=== PATIENT | male | born 1955 | race Caucasian/White ===

== ENCOUNTER 2017-01-02 10:09 | Inpatient (IN) | payer OTHER ==
--- NOTE | 2017-01-02 11:10 | US ---
ULTRASOUND EXAMINATION OF the right lower extremity WITH DOPPLER HISTORY: Pain FINDINGS: Examination of the right leg was performed from the groin to the calf region. The common femoral vei n is patent and compressible. There is a filling defect within the mid right femoral vein extending through the popliteal vein into the calf. This is noncompressible with no significant color Doppler flow. IMPRESSION: 1. Deep vein thrombosis extending from the mid femoral vein into the calf.
[2017-01-02 12:09] LABS: CHLORIDE,CL 108 mmol/L (98-110); SODIUM,NA 138 mmol/L (136-146)
[2017-01-02] MEDS ORDERED: Iopamidol 755 MG/ML 500 ML Multipack Bottle IVPUSH STA (13:13)
--- NOTE | 2017-01-02 13:55 | CT ---
EXAMINATION: CTA chest HISTORY: Evaluate for PE COMPARISON: None TECHNIQUE: Axial CT images obtained through the chest following the administration of 50 mL of Isovu e-370 in the right arm. Coronal and sagittal reconstructions obtained. FINDINGS: There is mild dependent atelectasis bilaterally. No focal consolidation noted. No pleural effusion or pneumothorax. Heart is normal in size without a pericardial effusion. Thoracic aorta is normal in caliber. There are several small segmental pulmonary emboli noted bilaterally. Nonpatholog ically enlarged mediastinal and hilar lymph nodes noted. No axillary lymphadenopathy. Mild coronary artery calcifications are present. There is a 4 to 5 mm nodular area within the left lung base, this averages above 120 Hounsfield units and likely represents a calcified granuloma. The visualized images of the upper abdomen appear grossly unremarkable. No suspicious osseous abnorm alities. IMPRESSION: 1. Several small segmental pulmonary emboli noted bilaterally. 2. Mild coronary artery calcifications. 3. Stable left basilar calcified granuloma.
[2017-01-02] MEDS ORDERED: Enoxaparin 100 MG/1 ML Syringe SUBCUT ONE (14:07)
--- NOTE | 2017-01-02 14:09 | EDM.PDOC ---
<Dallin Espinosa - Last Filed: 01/02/17 14:04> ED HPI GENERAL MEDICAL PROBLEM - General Chief Complaint: Lower Extremity Injury/Pain Stated Complaint: RT LEG GOPI Time Seen by Provider: 01/02/17 11:04 Source of Information: Reports: Patient History Limitations: Reports: No Limitations - History of Present Illness INITIAL COMMENTS - FREE TEXT/NARRATIVE: History of present illness: [61-year-old male presenting with complaints of leg pain. Patient has a history of DVT and states it feels the same as well as some amount of shortness of breath.] Review of systems: As per history of present illness and below otherwise all systems reviewed and negative. Past medical history: As per history of present illness and as reviewed below otherwise noncontributory. Surgical history: As per history of present illness and as reviewed below otherwise noncontributory. Social history: No reported history of drug or alcohol abuse. Family history: As per history of present illness and as reviewed below otherwise noncontributory. Physical exam: HEENT: Atraumatic, normocephalic, pupils reactive, negative for conjunctival pallor or scleral icterus, mucous membranes moist, throat clear, neck supple, nontender, trachea midline. Lungs: Clear to auscultation, breath sounds equal bilaterally, chest nontender. Heart: S1S2, regular, negative for clicks, rubs, or JVD. Abdomen: Soft, nondistended, nontender. Negative for masses or hepatosplenomegaly. Negative for costovertebral tenderness. Pelvis: Stable nontender. Genitourinary: Deferred. Rectal: Deferred. Extremities: Atraumatic, negative for cords or calf pain. Neurovascular unremarkable. Neuro: Awake, alert, oriented. Cranial nerves II through XII unremarkable. Cerebellum unremarkable. Motor and sensory unremarkable throughout. Exam nonfocal. Global assessment is benign save the subjective complaint as noted in the history of present illness Diagnostics: [Ultrasound of right leg, CTA] Therapeutics: [] Impression: [DVT on the right as well as segmental PE bilaterally] Plan: [Admit] Definitive disposition and diagnosis as appropriate pending reevaluation and review of above. right post. leg Pain Score (Numeric/FACES): 8 - Related Data Allergies Allergy/AdvReac Type Severity Reaction Status Date / Time vancomycin Allergy Severe Airway Verified 01/02/17 10:26 Tightness Home Meds: Home Meds Aspirin [Halfprin] 81 mg PO DAILY 07/08/15 [History] Lisinopril [Prinivil] 10 mg PO DAILY 07/08/15 [History] Past Medical History - Past Health History Medical/Surgical History: Denies Medical/Surgical History HEENT History: Reports: Impaired Vision Other HEENT History: wears glasses Cardiovascular History: Reports: Blood Clots/VTE/DVT, Hypertension Other Cardiovascular History: DVT to right leg in 2011 Respiratory History: Reports: None Gastrointestinal History: Reports: None Genitourinary History: Reports: None Musculoskeletal History: Reports: Fracture, Other (See Below) Other Musculoskeletal History: knee sx Neurological History: Reports: None Psychiatric History: Reports: None Endocrine/Metabolic History: Reports: None Hematologic History: Reports: None Immunologic History: Reports: None Oncologic (Cancer) History: Reports: None Dermatologic History: Reports: None - Infectious Disease History Infectious Disease History: Reports: None Social & Family History - Family History Family Medical History: Noncontributory Endocrine/Metabolic: Reports: Diabetes, type II - Tobacco Use Smoking Status *Q: Never Smoker Years of Tobacco use: 25 Packs/Tins Daily: 2 Used Tobacco, but Quit: Yes Month Tobacco Last Used: 7 years Second Hand Smoke Exposure: No - Alcohol Use Days Per Week of Alcohol Use: 3 Number of Drinks Per Day: 2 Total Drinks Per Week: 6 - Recreational Drug Use Recreational Drug Use: No Review of Systems - Review of Systems Review Of Systems: See Below (History of present illness) ED EXAM, GENERAL - Physical Exam Exam: See Below (History of present illness) Course - Vital Signs Last Recorded V/S: Last Vital Signs Temp 36.8 C 01/02/17 10:27 Pulse 60 01/02/17 13:51 Resp 18 01/02/17 13:51 BP 154/80 H 01/02/17 13:51 Pulse Ox 97 01/02/17 13:51 - Orders/Labs/Meds Orders: Active Orders 24 hr Category Date Time Status Patient Status [ADT] Stat ADT 01/02/17 14:07 Active Labs: Laboratory Tests 01/02/17 01/02/17 Range/Units 11:37 11:37 WBC 9.52 (4.0-11.0) K/uL RBC 4.89 (4.50-5.90) M/uL Hgb 15.6 (13.0-17.0) g/dL Hct 45.3 (38.0-50.0) % MCV 92.6 (80.0-98.0) fL MCH 31.9 (27.0-32.0) pg MCHC 34.4 (31.0-37.0) g/dL RDW Std Deviation 45.8 (28.0-62.0) fl RDW Coeff of Fariba 14 (11.0-15.0) % Plt Count 115 L (150-400) K/uL MPV 9.30 (7.40-12.00) fL Neut % (Auto) 60.8 (48.0-80.0) % Lymph % (Auto) 22.2 (16.0-40.0) % Leon % (Auto) 12.4 (0.0-15.0) % Eos % (Auto) 4.3 (0.0-7.0) % Baso % (Auto) 0.3 (0.0-1.5) % Neut # (Auto) 5.8 H (1.4-5.7) K/uL Lymph # (Auto) 2.1 (0.6-2.4) K/uL Leon # (Auto) 1.2 H (0.0-0.8) K/uL Eos # (Auto) 0.4 (0.0-0.7) K/uL Baso # (Auto) 0.0 (0.0-0.1) K/uL Nucleated RBC % 0.0 /100WBC Nucleated RBCs # 0 K/uL Sodium 138 (136-146) mmol/L Potassium 4.3 (3.5-5.1) mmol/L Chloride 108 (98-110) mmol/L Carbon Dioxide 22 (21-31) mmol/L BUN 17 (6.0-23.0) mg/dL Creatinine 0.9 (0.6-1.5) mg/dL Est Cr Clr Drug Dosing 97.41 mL/min Estimated GFR (MDRD) > 60.0 ml/min Glucose 98 (60-110) mg/dL Calcium 8.9 (8.8-10.8) mg/dL Total Bilirubin 0.9 (0.1-1.5) mg/dL AST 20 (5-40) IU/L ALT 19 (8-54) IU/L Alkaline Phosphatase 96 (40-150) Total Protein 7.3 (6.0-8.0) g/dL Albumin 3.8 (3.4-4.8) g/dL Globulin 3.5 (2.0-3.5) g/dL Albumin/Globulin Ratio 1.1 L (1.3-2.8) Meds: Medications Discontinued Medications Generic Name Dose Route Start Last Admin Trade Name Vicki PRN Reason Stop Dose Admin Enoxaparin Sodium 100 mg 01/02/17 14:07 Lovenox SUBCUT 01/02/17 14:08 ONETIME ONE Iopamidol 50 ml 01/02/17 13:13 01/02/17 13:14 Isovue Multipack-370 (76%) IVPUSH 01/02/17 13:14 50 ml ONETIME STA Administration Departure - Departure Time of Disposition: 14:06 Disposition: Admitted As Inpatient 66 Condition: Good Clinical Impression: Pulmonary emboli, DVT (deep venous thrombosis) - Discharge Information Referrals: PCP,None [Primary Care Provider] - Forms: ED Department Discharge - My Orders Last 24 Hours: My Active Orders 01/02/17 14:07 Patient Status [ADT] Stat - Assessment/Plan Last 24 Hours: My Active Orders 01/02/17 14:07 Patient Status [ADT] Stat <Danii Guerrier - Last Filed: 01/02/17 14:23> ED HPI GENERAL MEDICAL PROBLEM - History of Present Illness INITIAL COMMENTS - FREE TEXT/NARRATIVE: In light of the patient's complaint of intermittent shortness of breath and the extent of the extensive DVT of the leg CTA was performed which showed bilateral PEs with only a moderate load of clot. The patient here has had stable vitals and is not currently short of breath. The case was discussed with the hospitalist who will admit the patient and Lovenox was prescribed. Patient is comfortable with this care plan.
[2017-01-02] MEDS ORDERED: Acetaminophen 325 MG Tab PO PRN (15:22)
[2017-01-02] MEDS ORDERED: Morphine 10 MG/ML Syringe IVPUSH PRN (15:22)
[2017-01-02] MEDS ORDERED: Acetaminophen/HYDROcodone 325-5 MG Tab PO PRN (15:22)
[2017-01-02] MEDS ORDERED: Ondansetron 4 MG/2 ML SDV IVPUSH PRN (15:22)
--- NOTE | 2017-01-02 15:38 | PCM.HP ---
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 He reports he did recently have travel to [place] via plane 2-3 weeks ago. He was taken off Coumadin and was told to take ASA 81 daily and if he were to travel increase ASA to 325 mg daily. He also reports the past 2 weeks, exertion dyspnea which is new. He denies hemoptysis, cough or other sputum production, no chest pain, palpitations. He denies headaches, or nose bleeds and no black or bloody BMs. Last year at this time he was admitted for thrombocytopenia and was worked up for PE, which was negative. Platelets at that time dipped to 39, 000. He was sent to Hematology as outpatient. He reports nothing was found. He follows with Dr. Marilyn Anglin every 6 months. In the ED, all labwork WNL, except for Platelets 115,000. VSS. Venous doppler of R leg completed which showed DVT extending from R mid femoral to popiliteal vein into the calf. A CT chest angio was completed as well which revealed several small segmental pulmonary emoboli bilaterally, mild coronary artery calcifications, and stable L basilar calcified granuloma. He was given loading dose of Lovenox in the ED. He will be admitted for bilateral pulmonary emboli and R lower leg DVT. right post. leg Pain Score (Numeric/FACES): 8 - Related Data Allergies/Adverse Reactions: Allergies Allergy/AdvReac Type Severity Reaction Status Date / Time vancomycin Allergy Severe Airway Verified 01/02/17 10:26 Tightness Home Medications: Home Meds Aspirin [Halfprin] 81 mg PO DAILY 07/08/15 [History] Lisinopril [Prinivil] 10 mg PO DAILY 07/08/15 [History] Past Medical History - Past Health History Medical/Surgical History: Denies Medical/Surgical History HEENT History: Reports: Impaired Vision Other HEENT History: wears glasses Cardiovascular History: Reports: Blood Clots/VTE/DVT, Hypertension. Denies: Afib, Heart Failure, RI Other Cardiovascular History: DVT to right leg in 2011 Respiratory History: Reports: None. Denies: COPD Gastrointestinal History: Reports: None. Denies: GERD, GI Bleed, Inflammatory Bowel Disease Genitourinary History: Reports: None Musculoskeletal History: Reports: Fracture, Other (See Below) Other Musculoskeletal History: knee sx Neurological History: Reports: None. Denies: CVA, Head Trauma, Migraines, TIA Psychiatric History: Reports: None Endocrine/Metabolic History: Reports: None. Denies: Diabetes, Type II, Hypothyroidism Hematologic History: Reports: Idiopathic Thrombocytopenia Immunologic History: Reports: None Oncologic (Cancer) History: Reports: None Dermatologic History: Reports: None - Infectious Disease History Infectious Disease History: Reports: None Social & Family History - Family History Family Medical History: Noncontributory Endocrine/Metabolic: Reports: Diabetes, type II - Tobacco Use Smoking Status *Q: Former Smoker Years of Tobacco use: 30 Packs/Tins Daily: 2 Used Tobacco, but Quit: Yes Month Tobacco Last Used: 06/2008 Second Hand Smoke Exposure: No - Caffeine Use Caffeine Use: Reports: Coffee - Alcohol Use Days Per Week of Alcohol Use: 3 Number of Drinks Per Day: 2 Total Drinks Per Week: 6 - Recreational Drug Use Recreational Drug Use: No - Living Situation & Occupation Occupation: Employed H&P Review of Systems - Review of Systems: Review Of Systems: See Below General: Reports: No Symptoms. Denies: Fever, Chills, Malaise, Weakness HEENT: Reports: No Symptoms. Denies: Headaches, Sinus Congestion, Vertigo, Visual Changes Pulmonary: Reports: Shortness of Breath (on exertion). Denies: Pleuritic Chest Pain, Cough, Sputum Cardiovascular: Reports: Dyspnea on Exertion. Denies: Chest Pain, Palpitations , Edema, Lightheadedness Gastrointestinal: Reports: No Symptoms. Denies: Abdominal Pain, Black Stool, Bloody Stool, Hematemesis, Nausea, Vomiting Genitourinary: Reports: No Symptoms. Denies: Dysuria, Frequency, Burning, Hematuria Musculoskeletal: Reports: No Symptoms. Denies: Neck Pain, Shoulder Pain Skin: Reports: No Symptoms Psychiatric: Reports: No Symptoms Neurological: Reports: No Symptoms Hematologic/Lymphatic: Reports: No Symptoms Immunologic: Reports: No Symptoms Exam - Exam Exam: See Below - Vital Signs Vital Signs: Last Vital Signs Temp 98.3 F 01/02/17 10:27 Pulse 60 01/02/17 13:51 Resp 18 01/02/17 13:51 BP 154/80 H 01/02/17 13:51 Pulse Ox 97 01/02/17 13:51 Weight: 94.166 kg - Exam Quality Assessment: No: Supplemental Oxygen General: Alert, Oriented, Cooperative HEENT: Conjunctiva Clear, Hearing Intact, Mucosa Moist & [place], Nares Patent, Posterior Pharynx Clear, Pupils Equal Neck: Supple, Trachea Midline. No: Lymphadenopathy Lungs: Clear to Auscultation, Normal Respiratory Effort Cardiovascular: Regular Rate, Regular Rhythm, Normal S1, Normal S2. No: Irregular Rhythm, Systolic Murmur GI/Abdominal Exam: Normal Bowel Sounds, Soft, Non-Tender, No Organomegaly, No Distention, No Abnormal Bruit, No Mass, Pelvis Stable Back Exam: Normal Inspection, Full Range of Motion, NT Extremities: Normal Range of Motion, Increased Warmth, Redness, Other (Edema to R lower leg, +2 non-pitting. Small peticheal rash noted to front of R lower leg. Pain mainly to R calf. ) Neuro Extensive - Mental Status: Alert, Oriented x3 Neuro Extensive - Motor, Sensory, Reflexes: CN II-XII Intact, Normal Gait Psychiatric: Alert, Normal Affect, Normal Mood - Patient Data Result Diagrams: 01/02/17 11:37 01/02/17 11:37 *Q Meaningful Use (ADM) - VTE *Q VTE Criteria *Q: - Stroke *Q Stroke Criteria *Q: - AMI *Q AMI Criteria *Q: - Problem List (1) DVT (deep venous thrombosis) SNOMED Code(s): 739116772 ICD Code: I82.409 - ACUTE EMBOLISM AND THOMBOS UNSP DEEP VN UNSP LOWER EXTREMITY Status: Acute Current Visit: Yes Qualifiers: DVT location: lower extremity Affected thrombotic vein of extremity: femoral Chronicity: acute Laterality: right Qualified Code(s): I82.411 - Acute embolism and thrombosis of right femoral vein (2) Pulmonary emboli SNOMED Code(s): 97434859, 25006285 ICD Code: I26.99 - OTHER PULMONARY EMBOLISM WITHOUT ACUTE COR PULMONALE Status: Acute Current Visit: Yes Qualifiers: Chronicity: acute Acute cor pulmonale presence: without acute cor pulmonale (3) Thrombocytopenia SNOMED Code(s): 526860787 ICD Code: D69.6 - THROMBOCYTOPENIA, UNSPECIFIED Status: Chronic Priority : High Current Visit: No (4) Hypertension SNOMED Code(s): 78155915 ICD Code: I10 - ESSENTIAL (PRIMARY) HYPERTENSION Status: Chronic Priority : Medium Current Visit: No Qualifiers: Hypertension type: essential hypertension Qualified Code(s): I10 - Essential (primary) hypertension (5) History of DVT (deep vein thrombosis) SNOMED Code(s): 056170497 ICD Code: Z86.718 - PERSONAL HISTORY OF OTHER VENOUS THROMBOSIS AND EMBOLISM Status: Chronic Current Visit: Yes Problem List Initiated/Reviewed/Updated: Yes Orders Last 24hrs: Active Orders 24 hr Category Date Time Status Cardiac Monitoring [RC] . DIRECTED Care 01/02/17 15:25 Ordered Intake and Output [RC] QSHIFT Care 01/02/17 15:23 Ordered Oxygen Therapy [RC] PRN Care 01/02/17 15:23 Ordered Up With Assistance [RC] ASDIRECTED Care 01/02/17 15:22 Ordered VTE/DVT Education [RC] PER UNIT ROUTINE Care 01/02/17 15:23 Ordered Vital Signs [RC] Q4H Care 01/02/17 15:23 Ordered Regular Diet [DIET] Diet 01/02/17 Dinner Ordered Echo 2D wo Cont [US] Urgent Exams 01/02/17 15:26 Ordered CBC WITH AUTO DIFF [HEME] AM Lab 01/03/17 05:11 Ordered D-DIMER QUANTITATIVE [COAG] Routine Lab 01/02/17 15:26 Ordered Acetaminophen [Tylenol] Med 01/02/17 15:22 Ordered 650 mg PO Q4H PRN Acetaminophen/HYDROcodone [[place] 325-5 MG] Med 01/02/17 15:22 Ordered 1 - 2 tab PO Q4H PRN Lisinopril [Prinivil] Med 01/03/17 09:00 Ordered 10 mg PO DAILY Morphine Med 01/02/17 15:22 Ordered 3 mg IVPUSH Q3H PRN Ondansetron [Zofran] Med 01/02/17 15:22 Ordered 4 mg IVPUSH Q4H PRN Resuscitation Status Routine Resus Stat 01/02/17 15:22 Ordered Medication Orders Acetaminophen (Tylenol) 650 mg PO Q4H PRN PRN Reason: Pain Hydrocodone Bitart/Acetaminophen ([place] 325-5 Mg) 1 - 2 tab PO Q4H PRN PRN Reason: Pain (moderate 4-6) Lisinopril (Prinivil) 10 mg PO DAILY ARELI Morphine Sulfate (Morphine) 3 mg IVPUSH Q3H PRN PRN Reason: Pain (severe 7-10) Ondansetron HCl (Zofran) 4 mg IVPUSH Q4H PRN PRN Reason: Nausea Assessment/Plan Comment:: This 61 year old male admitted with bilateral segmental PE and R DVT 1. PE and DVT: I Spoke with Dr. Sanders's partner Dr. Allison in [facility]. He recommended if he is stable and no signs of bleeding he would start him on Xarelto or Eliquis. He would also obtain baseline D dimer and obtain ECHO. He would want him to follow up with Dr. Sanders in 1-2 weeks. Carlos would like to try the new agent and is contacting his insurance to make sure they are covered. Will likely start Xarelto this evening. Will obtain labwork in am to monitor platelets. Analgesia PRN for pain to R lower leg. 2. HTN: Continue Lisinopril. 3. Thrombocytopenia: hx of, will starting anticoagulation will monitor in am. <Denny Kelley - Last Filed: 01/02/17 19:30> Exam - Vital Signs Vital Signs: Last Vital Signs Temp 36.3 C 01/02/17 15:23 Pulse 72 01/02/17 15:23 Resp 18 01/02/17 15:23 BP 157/97 H 01/02/17 15:23 Pulse Ox 97 01/02/17 15:23 - Patient Data Result Diagrams: 01/02/17 11:37 01/02/17 11:37 *Q Meaningful Use (ADM) - VTE *Q VTE Criteria *Q: - Stroke *Q Stroke Criteria *Q: - AMI *Q AMI Criteria *Q: Orders Last 24hrs: Active Orders 24 hr Category Date Time Status Cardiac Monitoring [RC] . DIRECTED Care 01/02/17 15:25 Active Intake and Output [RC] QSHIFT Care 01/02/17 15:23 Active Oxygen Therapy [RC] PRN Care 01/02/17 15:23 Active Up With Assistance [RC] ASDIRECTED Care 01/02/17 15:22 Active VTE/DVT Education [RC] PER UNIT ROUTINE Care 01/02/17 15:23 Active Vital Signs [RC] Q4H Care 01/02/17 15:23 Active Regular Diet [DIET] Diet 01/02/17 Dinner Active Echo Comp wo Cont [US] Urgent Exams 01/02/17 15:26 Taken CBC WITH AUTO DIFF [HEME] AM Lab 01/03/17 05:11 Ordered Acetaminophen [Tylenol] Med 01/02/17 15:22 Active 650 mg PO Q4H PRN Acetaminophen/HYDROcodone [[place] 325-5 MG] Med 01/02/17 15:22 Active 1 - 2 tab PO Q4H PRN Lisinopril [Prinivil] Med 01/03/17 09:00 Active 10 mg PO DAILY Morphine Med 01/02/17 15:22 Active 3 mg IVPUSH Q3H PRN Ondansetron [Zofran] Med 01/02/17 15:22 Active 4 mg IVPUSH Q4H PRN Rivaroxaban [Xarelto] Med 01/03/17 00:01 Active 15 mg PO BID Resuscitation Status Routine Resus Stat 01/02/17 15:22 Ordered Medication Orders Acetaminophen (Tylenol) 650 mg PO Q4H PRN PRN Reason: Pain Hydrocodone Bitart/Acetaminophen ([place] 325-5 Mg) 1 - 2 tab PO Q4H PRN PRN Reason: Pain (moderate 4-6) Lisinopril (Prinivil) 10 mg PO DAILY ARELI Morphine Sulfate (Morphine) 3 mg IVPUSH Q3H PRN PRN Reason: Pain (severe 7-10) Ondansetron HCl (Zofran) 4 mg IVPUSH Q4H PRN PRN Reason: Nausea Rivaroxaban (Xarelto) 15 mg PO BID ARELI - Free Text/Narrative Note: I have reviewed this patient and his labs and care plan and I concur with these.
[2017-01-03] MEDS: Rivaroxaban 15 MG Tab PO SCH ×3 (00:54→20:43)
[2017-01-03] MEDS: Lisinopril 10 MG Tab PO SCH (08:05)
--- NOTE | 2017-01-03 11:58 | PCM.PN ---
<Demarcus Mahajan - Last Filed: 01/03/17 11:53> - General Info Date of Service: 01/03/17 Admission Dx/Problem (Free Text): Bilateral PE and R lower leg DVT Subjective Update: Patient is doing well. He states that his shortness of breath and chest pain are improving since admission. He continues to have pain in his right leg but this is significantly improved since admission. He also notes that the swelling has improved in his right leg since admission. He is tolerating oral intake, voiding appropriately. He denies any palpitations, wheezing, cough, abdominal pain, nausea, vomiting, constipation, diarrhea, fever. Functional Status: Reports: Pain Controlled, Tolerating Diet, Ambulating, Urinating - Review of Systems General: Reports: No Symptoms HEENT: Reports: No Symptoms Pulmonary: Reports: No Symptoms Cardiovascular: Reports: No Symptoms Gastrointestinal: Reports: No Symptoms Genitourinary: Reports: No Symptoms Musculoskeletal: Reports: Leg Pain (Pain is improving), Other (Right lower extremity swelling is also improving since admission.) Skin: Reports: No Symptoms Neurological: Reports: No Symptoms Psychiatric: Reports: No Symptoms - Patient Data Vitals - Most Recent: Last Vital Signs Temp 96.8 F 01/03/17 07:00 Pulse 66 01/03/17 07:00 Resp 18 01/03/17 07:00 BP 149/77 H 01/03/17 08:05 Pulse Ox 92 L 01/03/17 07:00 Weight - Most Recent: 94.166 kg I&O - Last 24 Hours: Intake & Output 01/02/17 01/03/17 01/03/17 22:59 06:59 14:59 Intake Total 1100 Balance 1100 Lab Results Last 24 Hours: Laboratory Results - last 24 hr 01/03/17 Range/Units 06:12 WBC 9.48 (4.0-11.0) K/uL RBC 4.97 (4.50-5.90) M/uL Hgb 15.3 (13.0-17.0) g/dL Hct 46.0 (38.0-50.0) % MCV 92.6 (80.0-98.0) fL MCH 30.8 (27.0-32.0) pg MCHC 33.3 (31.0-37.0) g/dL RDW Std Deviation 44.9 (28.0-62.0) fl RDW Coeff of Fariba 13 (11.0-15.0) % Plt Count 126 L (150-400) K/uL MPV 9.30 (7.40-12.00) fL Neut % (Auto) 62.1 (48.0-80.0) % Lymph % (Auto) 19.5 (16.0-40.0) % Cannon % (Auto) 13.6 (0.0-15.0) % Eos % (Auto) 4.6 (0.0-7.0) % Baso % (Auto) 0.2 (0.0-1.5) % Neut # (Auto) 5.9 H (1.4-5.7) K/uL Lymph # (Auto) 1.9 (0.6-2.4) K/uL Cannon # (Auto) 1.3 H (0.0-0.8) K/uL Eos # (Auto) 0.4 (0.0-0.7) K/uL Baso # (Auto) 0.0 (0.0-0.1) K/uL Nucleated RBC % 0.0 /100WBC Nucleated RBCs # 0 K/uL Med Orders - Current: Current Medications Acetaminophen (Tylenol) 650 mg PO Q4H PRN PRN Reason: Pain Hydrocodone Bitart/Acetaminophen ([place] 325-5 Mg) 1 - 2 tab PO Q4H PRN PRN Reason: Pain (moderate 4-6) Lisinopril (Prinivil) 10 mg PO DAILY [facility] Last Admin: 01/03/17 08:05 Dose: 10 mg Morphine Sulfate (Morphine) 3 mg IVPUSH Q3H PRN PRN Reason: Pain (severe 7-10) Ondansetron HCl (Zofran) 4 mg IVPUSH Q4H PRN PRN Reason: Nausea Rivaroxaban (Xarelto) 15 mg PO BID [facility] Last Admin: 01/03/17 08:06 Dose: 15 mg Discontinued Medications Enoxaparin Sodium (Lovenox) 100 mg SUBCUT ONETIME ONE Stop: 01/02/17 14:08 Last Admin: 01/02/17 14:39 Dose: 100 mg Iopamidol (Isovue Multipack-370 (76%)) 50 ml IVPUSH ONETIME STA Stop: 01/02/17 13:14 Last Admin: 01/02/17 13:14 Dose: 50 ml - Exam Quality Assessment: DVT Prophylaxis (scd on left lower extremity.) General: Alert, Oriented, Cooperative, No Acute Distress Neck: Supple Lungs: Clear to Auscultation, Normal Respiratory Effort Cardiovascular: Regular Rate, Regular Rhythm GI/Abdominal Exam: Normal Bowel Sounds, Soft, Non-Tender, No Organomegaly, No Distention, No Abnormal Bruit, No Mass Extremities: Normal Inspection, Normal Range of Motion, No Pedal Edema, Normal Capillary Refill, Leg Pain (Mild pain with palpation of the right lower extremity. Right lower extremity does not appear erythematous and is not warm to palpation.) Peripheral Pulses: 2+: Radial (L), Radial (R), Posterior Tibial (L), Posterior Tibial (R) Skin: Warm, Dry, Intact Wound/Incisions: Healing Well Neurological: No New Focal Deficit Psy/Mental Status: Alert, Normal Affect, Normal Mood - Problem List & Annotations (1) DVT (deep venous thrombosis) SNOMED Code(s): 525326703 Code(s): I82.409 - ACUTE EMBOLISM AND THOMBOS UNSP DEEP VN UNSP LOWER EXTREMITY Status: Acute Current Visit: Yes Qualifiers: DVT location: lower extremity Affected thrombotic vein of extremity: femoral Chronicity: acute Laterality: right Qualified Code(s): I82.411 - Acute embolism and thrombosis of right femoral vein (2) Pulmonary emboli SNOMED Code(s): 72497963, 46802741 Code(s): I26.99 - OTHER PULMONARY EMBOLISM WITHOUT ACUTE COR PULMONALE Status: Acute Current Visit: Yes Qualifiers: Chronicity: acute Acute cor pulmonale presence: without acute cor pulmonale (3) History of DVT (deep vein thrombosis) SNOMED Code(s): 493280135 Code(s): Z86.718 - PERSONAL HISTORY OF OTHER VENOUS THROMBOSIS AND EMBOLISM Status: Chronic Current Visit: Yes (4) Thrombocytopenia SNOMED Code(s): 528980230 Code(s): D69.6 - THROMBOCYTOPENIA, UNSPECIFIED Status: Chronic Priority: High Current Visit: No - Problem List Review Problem List Initiated/Reviewed/Updated: Yes - Plan Plan:: This 61 year old male admitted with bilateral segmental PE and R DVT 1. PE and DVT: -Patient started on xarelto last night. -Pain medication available for pain relief. 2. HTN: Continue Lisinopril. 3. Thrombocytopenia: -Platelet count has improved to 126. Previous was 115. -Patient started on xarelto last night. Discharge: One to 2 days pending improvement. <Denny Kelley - Last Filed: 01/03/17 13:08> - Patient Data Vitals - Most Recent: Last Vital Signs Temp 36.0 C 01/03/17 07:00 Pulse 66 01/03/17 07:00 Resp 18 01/03/17 07:00 BP 149/77 H 01/03/17 08:05 Pulse Ox 92 L 01/03/17 07:00 I&O - Last 24 Hours: Intake & Output 01/02/17 01/03/17 01/03/17 22:59 06:59 14:59 Intake Total 1100 Balance 1100 Lab Results Last 24 Hours: Laboratory Results - last 24 hr 01/03/17 Range/Units 06:12 WBC 9.48 (4.0-11.0) K/uL RBC 4.97 (4.50-5.90) M/uL Hgb 15.3 (13.0-17.0) g/dL Hct 46.0 (38.0-50.0) % MCV 92.6 (80.0-98.0) fL MCH 30.8 (27.0-32.0) pg MCHC 33.3 (31.0-37.0) g/dL RDW Std Deviation 44.9 (28.0-62.0) fl RDW Coeff of Fariba 13 (11.0-15.0) % Plt Count 126 L (150-400) K/uL MPV 9.30 (7.40-12.00) fL Neut % (Auto) 62.1 (48.0-80.0) % Lymph % (Auto) 19.5 (16.0-40.0) % Cannon % (Auto) 13.6 (0.0-15.0) % Eos % (Auto) 4.6 (0.0-7.0) % Baso % (Auto) 0.2 (0.0-1.5) % Neut # (Auto) 5.9 H (1.4-5.7) K/uL Lymph # (Auto) 1.9 (0.6-2.4) K/uL Cannon # (Auto) 1.3 H (0.0-0.8) K/uL Eos # (Auto) 0.4 (0.0-0.7) K/uL Baso # (Auto) 0.0 (0.0-0.1) K/uL Nucleated RBC % 0.0 /100WBC Nucleated RBCs # 0 K/uL Med Orders - Current: Current Medications Acetaminophen (Tylenol) 650 mg PO Q4H PRN PRN Reason: Pain Hydrocodone Bitart/Acetaminophen ([place] 325-5 Mg) 1 - 2 tab PO Q4H PRN PRN Reason: Pain (moderate 4-6) Lisinopril (Prinivil) 10 mg PO DAILY [facility] Last Admin: 01/03/17 08:05 Dose: 10 mg Morphine Sulfate (Morphine) 3 mg IVPUSH Q3H PRN PRN Reason: Pain (severe 7-10) Ondansetron HCl (Zofran) 4 mg IVPUSH Q4H PRN PRN Reason: Nausea Rivaroxaban (Xarelto) 15 mg PO BID [facility] Last Admin: 01/03/17 08:06 Dose: 15 mg Discontinued Medications Enoxaparin Sodium (Lovenox) 100 mg SUBCUT ONETIME ONE Stop: 01/02/17 14:08 Last Admin: 01/02/17 14:39 Dose: 100 mg Iopamidol (Isovue Multipack-370 (76%)) 50 ml IVPUSH ONETIME STA Stop: 01/02/17 13:14 Last Admin: 01/02/17 13:14 Dose: 50 ml - My Orders Last 24 Hours: My Active Orders 01/02/17 20:14 Telemetry Monitoring [Cardiac Monitoring] [RC] . DIRECTED - Free Text/Narrative Note: Dr. Lucas Kelley notes: I have examined this patient today, I have checked his data, and I have discussed his care with Dr. Mahajan. I agree with his assessments and his ongoing plan.
[2017-01-04] MEDS: Rivaroxaban 15 MG Tab PO SCH (08:39)
[2017-01-04] MEDS: Lisinopril 10 MG Tab PO SCH (08:39)
[2017-01-04 12:55] VITALS: BP 117/76
[2017-01-04] MEDS ORDERED: Rivaroxaban 15 MG Tab PO ONE (15:00)
--- NOTE | 2017-01-06 14:24 | ECHO ---
EXAM DATE: 01/02/17 PATIENT'S AGE: 61 The echocardiogram report can be seen in this patient's EMR (Electronic Medical Record) in the Reports section. The report has also been scanned into PACS. RUDY
--- NOTE | 2017-01-06 23:46 | PCM.DCSUM1 ---
<Chris Herrera Z - Last Filed: 01/06/17 23:36> Discharge Summary - Hospital Course Free Text/Narrative:: Discharge Summary Date of admission: 01/02/2017 Date of discharge: 01/04/2017 Admitting diagnosis: #1. PE and DVT #2. Thrombocytopenia #3. Hypertension Discharge diagnoses: #1. Primary embolism secondary to DVT patient now on multiple Xarelto #2. thrombocytopenia which is improving #3. hypertension Consultations: None Procedures: None Hospitalization course: She was admitted 01/02/2017 secondary to shortness of breath and dyspnea upon evaluation it was determined that the patient did have a pulmonary embolism secondary to DVT. Patient also was found to have thrombocytopenia and hypertension. Patient was immediately started on Lovenox 100 mg, the next 2 the patient was then started on Strattera 50 mg twice a day. Over the course of date of admission the patient became more stable complained of less discomfort and less pain and did not have any further episodes of shortness of breath or pain. The patient's hypertension was controlled with lisinopril. And on 01/04/2017 the patient was deemed stable thrombocytopenia was improving patient did not have any shortness of breath, any tachycardia, any tachypnea, or any other systemic findings. The patient was then sent home on his anticoagulation therapy consider Xarelto 20 mg. Disposition on discharge: patient was sent home Condition on discharge: stable on anticoagulative therapy not to Not tachycardic nonfebrile Discharge medications: continuation of home medication along with Xarelto 20mg PO daily Follow-up instructions: patient follow-up with primary care physician Instructions on discharge: Patient to report back to ER if he has any worsening shortness of breath any tachypnea tachycardia episodes of pain that was similar to before that he experienced. - Discharge Data Discharge Date: 01/04/17 Discharge Disposition: Home, Self-Care 01 Condition: Fair - Discharge Diagnosis/Problem(s) (1) DVT (deep venous thrombosis) SNOMED Code(s): 827599634 ICD Code: I82.409 - ACUTE EMBOLISM AND THOMBOS UNSP DEEP VN UNSP LOWER EXTREMITY Status: Acute Priority: High Qualifiers: DVT location: lower extremity Affected thrombotic vein of extremity: femoral Chronicity: acute Laterality: right Qualified Code(s): I82.411 - Acute embolism and thrombosis of right femoral vein (2) Pulmonary emboli SNOMED Code(s): 96303720, 00030177 ICD Code: I26.99 - OTHER PULMONARY EMBOLISM WITHOUT ACUTE COR PULMONALE Status: Acute Priority: High Qualifiers: Chronicity: acute Acute cor pulmonale presence: without acute cor pulmonale - Discharge Plan Prescriptions/Med Rec: Rivaroxaban [Xarelto] 20 mg PO DAILY #30 tablet Home Medications: Home Meds Aspirin [Halfprin] 81 mg PO DAILY 07/08/15 [History] Lisinopril [Prinivil] 10 mg PO DAILY 07/08/15 [History] Rivaroxaban [Xarelto] 20 mg PO DAILY #30 tablet 01/04/17 [Rx] Patient Handouts: Rivaroxaban oral tablets, Pulmonary Embolism, Deep Vein Thrombosis Referrals: Denny Kelley MD [Physician] - - Patient Data Vitals - Most Recent: Last Vital Signs Temp 36.7 C 01/04/17 12:00 Pulse 70 01/04/17 12:00 Resp 16 01/04/17 12:00 BP 117/76 01/04/17 12:00 Pulse Ox 93 L 01/04/17 15:00 Weight - Most Recent: 94.166 kg Med Orders - Current: Current Medications Discontinued Medications Acetaminophen (Tylenol) 650 mg PO Q4H PRN PRN Reason: Pain Hydrocodone Bitart/Acetaminophen ([place] 325-5 Mg) 1 - 2 tab PO Q4H PRN PRN Reason: Pain (moderate 4-6) Enoxaparin Sodium (Lovenox) 100 mg SUBCUT ONETIME ONE Stop: 01/02/17 14:08 Last Admin: 01/02/17 14:39 Dose: 100 mg Iopamidol (Isovue Multipack-370 (76%)) 50 ml IVPUSH ONETIME STA Stop: 01/02/17 13:14 Last Admin: 01/02/17 13:14 Dose: 50 ml Lisinopril (Prinivil) 10 mg PO DAILY [facility] Last Admin: 01/04/17 08:39 Dose: 10 mg Morphine Sulfate (Morphine) 3 mg IVPUSH Q3H PRN PRN Reason: Pain (severe 7-10) Ondansetron HCl (Zofran) 4 mg IVPUSH Q4H PRN PRN Reason: Nausea Rivaroxaban (Xarelto) 15 mg PO BID [facility] Last Admin: 01/04/17 08:39 Dose: 15 mg Rivaroxaban (Xarelto) 15 mg PO ONETIME ONE Stop: 01/04/17 15:01 Last Admin: 01/04/17 15:03 Dose: 15 mg *Q Meaningful Use (DIS) - VTE *Q VTE Criteria *Q: - Stroke *Q Stroke Criteria *Q: - AMI *Q AMI Criteria *Q: <WarrenDenny Arnold - Last Filed: 01/07/17 08:06> - Patient Data Vitals - Most Recent: Last Vital Signs Temp 36.7 C 01/04/17 12:00 Pulse 70 01/04/17 12:00 Resp 16 01/04/17 12:00 BP 117/76 01/04/17 12:00 Pulse Ox 93 L 01/04/17 15:00 Med Orders - Current: Current Medications Discontinued Medications Acetaminophen (Tylenol) 650 mg PO Q4H PRN PRN Reason: Pain Hydrocodone Bitart/Acetaminophen ([place] 325-5 Mg) 1 - 2 tab PO Q4H PRN PRN Reason: Pain (moderate 4-6) Enoxaparin Sodium (Lovenox) 100 mg SUBCUT ONETIME ONE Stop: 01/02/17 14:08 Last Admin: 01/02/17 14:39 Dose: 100 mg Iopamidol (Isovue Multipack-370 (76%)) 50 ml IVPUSH ONETIME STA Stop: 01/02/17 13:14 Last Admin: 01/02/17 13:14 Dose: 50 ml Lisinopril (Prinivil) 10 mg PO DAILY [facility] Last Admin: 01/04/17 08:39 Dose: 10 mg Morphine Sulfate (Morphine) 3 mg IVPUSH Q3H PRN PRN Reason: Pain (severe 7-10) Ondansetron HCl (Zofran) 4 mg IVPUSH Q4H PRN PRN Reason: Nausea Rivaroxaban (Xarelto) 15 mg PO BID [facility] Last Admin: 01/04/17 08:39 Dose: 15 mg Rivaroxaban (Xarelto) 15 mg PO ONETIME ONE Stop: 01/04/17 15:01 Last Admin: 01/04/17 15:03 Dose: 15 mg *Q Meaningful Use (DIS) - VTE *Q VTE Criteria *Q: - Stroke *Q Stroke Criteria *Q: - AMI *Q AMI Criteria *Q: - Free Text/Narrative Note: Dr. Lucas Kelley MD notes: I examined this patient on the day of this note. I reviewed the lab testing he had. I agree with Dr. Herrera's assessment and plan.
== END 2017-01-04 15:10 | disposition home or self-care (01) | DRG 299 ==
LOC: MW.ED 10:09 → MW.MS 14:37
PROVIDERS: ADMIT Family Medicine; ATTEND Family Medicine
DX: I82.411 Acute embolism and thrombosis of right femoral vein (principal); I26.99 Other pulmonary embolism without acute cor pulmonale; D69.3 Immune thrombocytopenic purpura; I10 Essential (primary) hypertension; Z87.891 Personal history of nicotine dependence; Z88.8 Allergy status to other drugs, medicaments and biological substances; Z79.899 Other long term (current) drug therapy
CPT/HCPCS: 36415; 71275; 71275-26; 80053; 85025; 85379; 93306; 93971-26-RT; 93971-RT; 99283; 99284-25; A9270-GY; J1650; Q9967

== ENCOUNTER 2017-11-30 16:49 | Emergency (ER) | payer OTHER ==
[2017-11-30 17:10] VITALS: BP 143/84
--- NOTE | 2017-11-30 17:10 | EDM.PDOC ---
ED HPI GENERAL MEDICAL PROBLEM - General Chief Complaint: Lower Extremity Injury/Pain Stated Complaint: RIGHT LEG PAIN Time Seen by Provider: 11/30/17 16:54 - History of Present Illness INITIAL COMMENTS - FREE TEXT/NARRATIVE: HISTORY AND PHYSICAL: History of present illness: The patient is a 62-year-old male who has a history of DVT and PE in 2017 --- in fact was seen here in our emergency department and admitted to our hospital-- -- and is on lifetime Xarelto and presents with complaints of swelling and pain to his right calf extending up into his groin that feels typical of when he had a DVT in the past. Patient states he is compliant with his Xarelto and has had no trauma to his leg and has no bony pain or neurosensory changes. He says that the pain and swelling has evolved over the last 24 hours and he first started feeling discomfort and a little bit of swelling in his right leg when he was on a plane flying to [facility] from [place]. The patient denies any shortness of breath chest pain or any other systemic complaints . The patient has a family doctor back at home where he is from. Review of systems: As per history of present illness and below otherwise all systems reviewed and negative. Past medical history: As per history of present illness and as reviewed below otherwise noncontributory. Surgical history: As per history of present illness and as reviewed below otherwise noncontributory. Social history: No reported history of drug or alcohol abuse. Family history: As per history of present illness and as reviewed below otherwise noncontributory. Physical exam: General: Well-developed well-nourished man who ambulated into the ED without distress and vital signs are reviewed by me HEENT: Atraumatic, normocephalic, negative for conjunctival pallor or scleral icterus, mucous membranes moist, throat clear, neck supple, nontender, trachea midline. Lungs: Clear to auscultation, breath sounds equal bilaterally, chest nontender. Heart: S1S2, regular rate and rhythm no overt murmurs Abdomen: Soft, nondistended, nontender. NABS. Pelvis: Deferred Genitourinary: Deferred. Rectal: Deferred. Extremities: Atraumatic, no palpable bony deformities throughout the lower extremities and full range of motion of all extremities. At the right lower leg from the knee to the ankle there is mild soft tissue swelling which is uniform throughout and some pinkish erythema but this does not extend up to the thigh area and there is no discrete thigh tenderness but there is some groin tenderness with palpation. Neurovascular is intact in the compartments are all soft. The right calf is somewhat tender but I do not appreciate any cords. Neurovascular unremarkable. Neuro: Awake, alert, oriented. Cranial nerves II through XII unremarkable. Cerebellum unremarkable. Motor and sensory unremarkable throughout. Exam nonfocal. Diagnostics: Venous Doppler of right lower extremity Therapeutics: Lovenox Coumadin The patient tells me that he is staying in the [facility] until the beginning of January and has no local provider despite having one at home. He says that he has had 3 prior DVTs one in 2001, one in 2009, and one last year and 2016. This is the fourth DVT. He has had PEs as well. He tells me that when he was on Coumadin and Lovenox back in 2009 he did very well but the Coumadin was stopped after an adequate time as they thought that he did not need to be on it lifelong. 1835: I discussed this case with Dr. Chi the hourly shift manager electronic data interchange specialist at [facility] who also stats our oncology clinic. He feels that putting the patient on Lovenox and Coumadin is the best choice but he does recommend the patient get a hematology follow-up going forward as he clearly has something more than just dependent venous stasis causing DVT was travel. I discussed this with the patient and he agrees. My nursing staff will get a follow-up appointment with him and the Coumadin clinic tomorrow when they're open and call this patient with those scheduled appointments. I will give him Lovenox and Coumadin to start today. The patient recalls that his dose of Coumadin was 7.5 mg in the past so I will start at that number. Impression: Acute on chronic DVT right lower extremity, Xarelto failure Definitive disposition and diagnosis as appropriate pending reevaluation and review of above. right upper groin Pain Score (Numeric/FACES): 7 - Related Data Allergies Allergy/AdvReac Type Severity Reaction Status Date / Time vancomycin Allergy Severe Airway Verified 01/02/17 10:26 Tightness Home Meds: Home Meds Lisinopril [Prinivil] 10 mg PO DAILY 07/08/15 [History] Rivaroxaban [Xarelto] 10 mg PO DAILY 11/30/17 [History] Past Medical History - Past Health History Medical/Surgical History: Denies Medical/Surgical History HEENT History: Reports: Impaired Vision Other HEENT History: wears glasses Cardiovascular History: Reports: Blood Clots/VTE/DVT, Hypertension Other Cardiovascular History: DVT to right leg in 2011 Respiratory History: Reports: None Gastrointestinal History: Reports: None Genitourinary History: Reports: None Musculoskeletal History: Reports: Fracture, Other (See Below) Other Musculoskeletal History: knee sx Neurological History: Reports: None Psychiatric History: Reports: None Endocrine/Metabolic History: Reports: None Hematologic History: Reports: Idiopathic Thrombocytopenia Other Hematologic History: Thrombocytopenia Immunologic History: Reports: None Oncologic (Cancer) History: Reports: None Dermatologic History: Reports: None - Infectious Disease History Infectious Disease History: Reports: None Social & Family History - Family History Family Medical History: Noncontributory Endocrine/Metabolic: Reports: Diabetes, type II - Tobacco Use Smoking Status *Q: Never Smoker - Caffeine Use Caffeine Use: Reports: Coffee - Alcohol Use Days Per Week of Alcohol Use: 7 Number of Drinks Per Day: 2 Total Drinks Per Week: 14 - Recreational Drug Use Recreational Drug Use: No - Living Situation & Occupation Occupation: Employed Review of Systems - Review of Systems Review Of Systems: ROS reveals no pertinent complaints other than HPI. ED EXAM, GENERAL - Physical Exam Exam: See Below (See dictation) Course - Vital Signs Last Recorded V/S: Last Vital Signs Temp 36.0 C 11/30/17 17:00 Pulse 72 11/30/17 17:00 Resp 20 11/30/17 17:00 BP 143/84 H 11/30/17 17:00 Pulse Ox 94 L 11/30/17 17:00 - Orders/Labs/Meds Orders: Active Orders 24 hr Category Date Time Status Venous Doppler Lwr Ext Rt [US] Stat Exams 11/30/17 17:07 Taken Departure - Departure Time of Disposition: 18:48 Disposition: Home, Self-Care 01 Condition: Good Clinical Impression: Right leg DVT Qualifiers: Affected thrombotic vein of extremity: unspecified vein of extremity Chronicity : unspecified Qualified Code(s): I82.401 - Acute embolism and thrombosis of unspecified deep veins of right lower extremity - Discharge Information Referrals: PCP,None [Primary Care Provider] - Forms: ED Department Discharge Additional Instructions: The following information is given to patients seen in the emergency department who are being discharged to home. This information is to outline your options for follow-up care. We provide all patients seen in our emergency department with a follow-up referral. The need for follow-up, as well as the timing and circumstances, are variable depending upon the specifics of your emergency department visit. If you don't have a primary care physician on staff, we will provide you with a referral. We always advise you to contact your personal physician following an emergency department visit to inform them of the circumstance of the visit and for follow-up with them and/or the need for any referrals to a consulting specialist. The emergency department will also refer you to a specialist when appropriate. This referral assures that you have the opportunity for followup care with a specialist. All of these measure are taken in an effort to provide you with optimal care, which includes your followup. Under all circumstances we always encourage you to contact your private physician who remains a resource for coordinating your care. When calling for followup care, please make the office aware that this follow-up is from your recent emergency room visit. If for any reason you are refused follow-up, please contact the [facility] emergency department at and ask to speak to the emergency department charge nurse. [facility] Primary care- Internal Medicine and Family [address] [id number] Please start your Lovenox tomorrow morning as you have received the first dose this evening and also start your Coumadin tomorrow. Our nurse Deandra will contact you tomorrow with your appointments in our clinic for primary care as well as with the Coumadin clinic. Elevate the leg ice as needed over-the- counter medications for pain. Return to ER as needed and as discussed - My Orders Last 24 Hours: My Active Orders 11/30/17 17:07 Venous Doppler Lwr Ext Rt [US] Stat - Assessment/Plan Last 24 Hours: My Active Orders 11/30/17 17:07 Venous Doppler Lwr Ext Rt [US] Stat
[2017-11-30] MEDS ORDERED: Enoxaparin 100 MG/1 ML Syringe SUBCUT ONE (18:49)
[2017-11-30] MEDS ORDERED: Warfarin 5 MG Tab PO ONE (18:49)
--- NOTE | 2017-12-01 09:00 | US ---
EXAM DATE: 11/30/17 PATIENT'S AGE: 62 Patient: [facility] Facility: [facility], [place], [place] Site . Site : [id number] Study: US Extremity [id number]/2/2018 5:47:26 PM Ordering Physician: Doctor Wagner Final Report: INDICATION: Right lower extremity pain. History of prior DVT. TECHNIQUE: Ultrasound venous duplex lower right extremity. Compression venous exam was performed using irizarry-scale, color Doppler, and spectral Doppler imaging. COMPARISON: No prior. FINDINGS: Deep venous thrombosis is present within the more inferior aspect of right femoral vein and also present within popliteal and posterior tibial veins. Given the mild distention of the popliteal and posterior tibial veins, the thrombus within those veins is likely acute. The mid to upper aspect of the femoral vein and common femoral vein are patent. Right peroneal veins are patent. IMPRESSION: 1. Deep venous thrombosis within the right femoral, popliteal and posterior tibial veins. - Report was called to Dr. Guerrier on 11/30/2017 at 18:06 hours. Dictated by Jesus Carty MD @ 11/30/2017 6:04:29 PM Dictated by: Jesus Carty MD @ 11/30/2017 18:07:33 (Electronic Signature) Report Signed by Proxy. RUDY
== END 2017-11-30 19:09 | disposition home or self-care (01) ==
LOC: MW.ED 16:49
DX: I82.401 Acute embolism and thrombosis of unspecified deep veins of right lower extremity (principal); I10 Essential (primary) hypertension; Z79.01 Long term (current) use of anticoagulants; Z79.899 Other long term (current) drug therapy; Z88.1 Allergy status to other antibiotic agents
CPT/HCPCS: 36415; 85610; 93971; 96372; 99283; A9270; J1650

== ENCOUNTER 2022-01-11 14:30 | Inpatient (IN) | payer MEDICARE, BC ==
[2022-01-11] MEDS ORDERED: Sodium Chloride 0.9% 2.5 ML Syringe FLUSH PRN (17:24)
[2022-01-11] MEDS ORDERED: Sodium Chloride 0.9% 10 ML Syringe FLUSH PRN (17:24)
[2022-01-11] MEDS ORDERED: Cefepime 2 GM in Sodium Chloride 0.9% 50 ML IV ONE (17:30)
[2022-01-11] MEDS ORDERED: Cefepime 2 GM Vial ONE (18:12)
[2022-01-11] MEDS ORDERED: Sodium Chloride 0.9% 100 ML ONE (18:13)
[2022-01-11 18:34] LABS: CARBON DIOXIDE,CO2 24.6 mmol/L (21.0-32.0); POTASSIUM,K 4.3 mmol/L (3.5-5.1)
[2022-01-11] MEDS ORDERED: Sodium Chloride 0.9% 1,000 ML IV ONE (18:51)
[2022-01-11] MEDS: Doxycycline 100 MG in Sodium Chloride 0.9% 100 ML IV SCH (19:27)
[2022-01-11] MEDS ORDERED: DAPTOmycin 500 MG Vial IVPUSH SCH (23:30)
[2022-01-11] MEDS ORDERED: Sodium Chloride 0.9% 1,000 ML IV SCH (23:30)
[2022-01-12] MEDS ORDERED: SODIUM CHLORIDE 0.9% IVPUSH SCH ×2
[2022-01-12] MEDS ORDERED: DAPTOMYCIN IVPUSH SCH ×2
[2022-01-12] MEDS: Doxycycline 100 MG in Sodium Chloride 0.9% 100 ML IV SCH ×2 (05:29→17:00)
[2022-01-12 06:38] LABS: CARBON DIOXIDE,CO2 22.7 mmol/L (21.0-32.0); POTASSIUM,K 4.2 mmol/L (3.5-5.1)
[2022-01-12] MEDS: Metoprolol Succinate 25 MG Tab.ER PO SCH (08:43)
[2022-01-12] MEDS: Lisinopril 10 MG Tab PO SCH (08:44)
[2022-01-12] MEDS: Rivaroxaban 10 MG Tab PO SCH (08:44)
[2022-01-12] MEDS ORDERED: Rosuvastatin 10 MG Tab PO SCH (09:00)
[2022-01-13] MEDS ORDERED: DAPTOmycin 500 MG in Sodium Chloride 0.9% 10 ML IVPUSH SCH (01:00)
[2022-01-13] MEDS: Doxycycline 100 MG in Sodium Chloride 0.9% 100 ML IV SCH (05:17)
[2022-01-13 06:54] LABS: CARBON DIOXIDE,CO2 23.2 mmol/L (21.0-32.0); POTASSIUM,K 4.1 mmol/L (3.5-5.1)
[2022-01-13] MEDS: Lisinopril 10 MG Tab PO SCH (08:15)
[2022-01-13] MEDS: Rivaroxaban 10 MG Tab PO SCH (08:15)
[2022-01-13] MEDS: Metoprolol Succinate 25 MG Tab.ER PO SCH (08:15)
[2022-01-13 11:42] VITALS: BP 149/83; PULSE 53
[2022-01-13] MEDS ORDERED: Doxycycline 100 MG Cap PO SCH (18:00)
== END 2022-01-13 13:25 | disposition home or self-care (01) | DRG 558 ==
LOC: MW.ED 14:30 → MW.MS 19:05
PROVIDERS: ADMIT Internal Medicine; ATTEND Internal Medicine
DX: M70.22 Olecranon bursitis, left elbow (principal); L03.114 Cellulitis of left upper limb; N17.9 Acute kidney failure, unspecified; I82.411 Acute embolism and thrombosis of right femoral vein; Z88.1 Allergy status to other antibiotic agents; Z79.01 Long term (current) use of anticoagulants; Z79.899 Other long term (current) drug therapy; I10 Essential (primary) hypertension; Z91.81 History of falling; Z79.2 Long term (current) use of antibiotics; Z86.718 Personal history of other venous thrombosis and embolism; Z79.1 Long term (current) use of non-steroidal anti-inflammatories (NSAID); Z86.711 Personal history of pulmonary embolism; Z86.010 Personal history of colon polyps; Z87.81 Personal history of (healed) traumatic fracture; Z98.890 Other specified postprocedural states; F17.210 Nicotine dependence, cigarettes, uncomplicated; Z20.822 Contact with and (suspected) exposure to COVID-19
CPT/HCPCS: 36415; 80053; 83605; 85025; 85379; 86140; 87040 ×2; 93971; 96365; 99284; J0692; U0002; 80048; 96367; 99222; 99232; 99238; A9270-GY; J0878; J3490; J7030

== ENCOUNTER 2022-04-09 09:20 | Emergency (ER) | payer OTHER, BC ==
[2022-04-09] MEDS ORDERED: Oxymetazoline 0.05% Nasal Spray 30 ML Bottle NAS ONE (09:43)
[2022-04-09 11:38] VITALS: BP 161/107; PULSE 75
== END 2022-04-09 11:38 | disposition home or self-care (01) ==
LOC: MW.ED 09:20
DX: R04.0 Epistaxis (principal); I10 Essential (primary) hypertension; Z86.711 Personal history of pulmonary embolism; Z88.1 Allergy status to other antibiotic agents; Z79.01 Long term (current) use of anticoagulants
CPT/HCPCS: 30903; 99283-25

== ENCOUNTER 2022-04-11 14:07 | Emergency (ER) | payer BC, OTHER ==
[2022-04-11 15:48] VITALS: BP 92/57; PULSE 77
== END 2022-04-11 15:48 | disposition home or self-care (01) ==
LOC: MW.ED 14:07
DX: Z48.00 Encounter for change or removal of nonsurgical wound dressing (principal); I10 Essential (primary) hypertension; F17.210 Nicotine dependence, cigarettes, uncomplicated; Z88.1 Allergy status to other antibiotic agents; Z79.01 Long term (current) use of anticoagulants; Z79.899 Other long term (current) drug therapy
CPT/HCPCS: 99282

== ENCOUNTER 2024-11-08 10:01 | Emergency (ER) | payer MEDICARE, BC ==
[2024-11-08] MEDS: Magnesium Sulfate 2 GM/50 mL 50 ML ONE (10:28)
[2024-11-08] MEDS: Magnesium Sulfate 2 GM/50 mL 2 GM in Premix Bag 1 BAG IV ONE (10:29)
[2024-11-08] MEDS: Albuterol/Ipratropium 3.0-0.5 MG/3 ML Neb Soln ONE (10:29)
[2024-11-08] MEDS: Albuterol/Ipratropium 3.0-0.5 MG/3 ML Neb Soln NEB ONE (10:31)
[2024-11-08 10:32] LABS: BASOPHILS ABSOLUTE AUTO 0.02 K/uL (0.00-0.20); BASOPHILS PERCENT AUTO 0.3 % (0.0-1.0); EOSINOPHILS ABSOLUTE AUTO 0.22 K/uL (0.00-0.45); EOSINOPHILS PERCENT AUTO 3.5 % (0.0-6.0); HEMATOCRIT 41.2 % (42.0-52.0); HEMOGLOBIN 14.1 g/dL (14.0-18.0); IMMATURE GRAN ABSOLUTE AUTO 0.02 K/uL (0.00-0.05); IMMATURE GRAN PERCENT AUTO 0.3 % (0.0-0.4); LYMPHOCYTES ABSOLUTE AUTO 1.38 K/uL (1.00-4.80); LYMPHOCYTES PERCENT AUTO 21.7 % (24.0-44.0); MEAN CORPUSCULAR HEMOGLOBIN 31.3 pg (28.0-32.0); MEAN CORPUSCULAR HGB CONC 34.2 g/dL (32.0-36.0); MEAN CORPUSCULAR VOLUME 91.4 fL (83.0-99.0); MEAN PLATELET VOLUME 8.8 fL (9.4-12.4); MONOCYTES PERCENT AUTO 12.6 % (0.0-8.0); NEUTROPHILS ABSOLUTE AUTO 3.93 K/uL (1.80-7.70); NEUTROPHILS PERCENT AUTO 61.6 % (41.0-71.0); PLATELET COUNT,PLT 156 K/uL (150-400); RED BLOOD CELL COUNT 4.51 M/uL (4.52-5.90); WHITE BLOOD CELL COUNT,WBC 6.37 K/uL (3.9-11.3)
[2024-11-08] MEDS: methylPREDNISolone Sodium Succinate 125 MG/2 ML SDV IVPUSH ONE (10:35)
[2024-11-08] MEDS: Aspirin 81 MG Tab.Chew PO ONE (10:35)
[2024-11-08] MEDS: Ondansetron 4 MG/2 ML SDV IVPUSH ONE (10:46)
[2024-11-08 11:02] VITALS: BP 187/110; PULSE 73
[2024-11-08 11:06] LABS: LACTIC ACID 1.1 mmol/L (0.4-2.0)
[2024-11-08 11:07] LABS: A/G RATIO 1.1 (0.9-1.6); ALBUMIN 3.6 g/dL (3.4-5.0); BILIRUBIN TOTAL 0.7 mg/dL (0.2-1.0); CALCIUM 9.1 mg/dL (8.5-10.1); CARBON DIOXIDE,CO2 26.2 mmol/L (21.0-32.0); EST CRCL DRUG DOSING (CG) 74.25 mL/min; MAGNESIUM 3.9 mg/dL (1.8-2.4); POTASSIUM,K 3.9 mmol/L (3.5-5.1); PROTEIN TOTAL,TP 6.8 g/dL (6.4-8.2)
[2024-11-08] MEDS: Tenecteplase 50 MG Kit IV STA (11:09)
[2024-11-08] MEDS: Morphine 4 MG/ML Syringe IVPUSH ONE (11:16)
[2024-11-08] MEDS: Clopidogrel 75 MG Tab PO ONE (11:16)
== END 2024-11-08 11:28 ==
LOC: MW.ED 10:01
DX: I21.3 ST elevation (STEMI) myocardial infarction of unspecified site (principal); Z75.3 Unavailability and inaccessibility of health-care facilities; I10 Essential (primary) hypertension; E78.00 Pure hypercholesterolemia, unspecified; Z79.899 Other long term (current) drug therapy; Z88.1 Allergy status to other antibiotic agents
CPT/HCPCS: 36415; 71045; 80053; 83605; 83690; 83735; 83880; 84484; 85025; 93005; 96365; 96375; 99285; A9270; J2270; J2919; J3101; J3475; 93010; 99284